=== PATIENT | female | born 1995 | race Caucasian/White ===

== ENCOUNTER → 2020-11-28 19:38 | Observation (INO) ==
[2020-11-28 19:05] LABS: Bacteria,Urine Few per hpf (None-Few); Bilirubin,Urine Negative (Negative); Blood,Urine Negative (Negative); Clarity,Urine Turbid (Clear); Color,Urine Yellow (Yellow); Glucose,Urine (UA) Normal (Normal); Ketones,Urine Negative (Negative); Leukocyte Esterase,Urine Small (Negative); Mucus,Urine Few per lpf (None-Few); Nitrite,Urine Negative (Negative); Protein,Urine 30 mg/dL (Neg-Trace); RBC,Urine 0-3 per hpf (0-3); Specific Gravity,Urine 1.028 (1.010-1.025); Squamous Epithelial Cell,Urine Few per hpf (None-Few); Urobilinogen,Urine Normal (Normal)
[~2020-11-28 19:38] MED LIST: Ringers Solution, Lactated 1,000 ML ONE
== END | disposition home or self-care (01) ==
LOC: 1NENULAB
PROVIDERS: ADMIT Obstetrics & Gynecology; ATTEND Obstetrics & Gynecology

== ENCOUNTER 2020-12-14 18:00 | Inpatient (IN) ==
[2020-12-14] MEDS ORDERED: Famotidine 20 MG/2 ML VIAL IVP ONE (18:57)
[2020-12-14] MEDS ORDERED: CeFAZolin 2,000 MG/50 ML BAG IVPB ONE (18:57)
[2020-12-14] MEDS ORDERED: Ringers Solution, Lactated 1,000 ML IVC ONE (18:57)
[2020-12-14] MEDS ORDERED: Metoclopramide 10 MG/2 ML VIAL IVP ONE (18:57)
[2020-12-14] MEDS ORDERED: Ringers Solution, Lactated 1,000 ML IVC SCH (19:00)
[2020-12-14 19:23] LABS: Basophils % 0.3 %; Eosinophils # 0.2 K/mcL (0.0-0.6); Hematocrit 35.2 % (35.3-44.9); Hemoglobin 10.2 g/dL (11.5-15.4); Immature Granulocytes % 0.4 % (0-4); Lymphocytes # 3.2 K/mcL (0.6-4.6); Lymphocytes % 20.3 %; Mean Corpuscular Hemoglobin 22.8 pg (28.0-33.3); Mean Corpuscular Volume 78.7 fL (83.0-100.0); Mean Platelet Volume 11.3 fL (9.4-12.4); Monocytes # 0.8 K/mcL (0.0-1.3); Monocytes % 5.3 %; Neutrophils # 11.5 K/mcL (1.6-8.9); Platelet Count 291 K/mcL (140-400); Red Blood Count 4.47 M/mcL (3.82-4.97); Segmented Neutrophils % 72.7 %; White Blood Count 15.8 K/mcL (4.3-11.1)
[2020-12-14] MEDS ORDERED: *HR* FentaNYL (PF) 250 MCG/5 ML VIAL ONE (19:38)
[2020-12-14] MEDS ORDERED: *HR* Morphine Sulfate/PF 10 MG/10 ML AMPUL ONE (19:38)
[2020-12-14] MEDS ORDERED: *HR* Phenylephrine 10 MG/ML VIAL ONE (19:38)
[2020-12-14] MEDS ORDERED: *HR* FentaNYL (PF) 100 MCG/2 ML VIAL ONE ×2 (19:39→21:52)
[2020-12-14 19:49] LABS: Amphetamine Screen,Urine Negative ng/mL (Cutoff=1000); Barbiturate Screen,Urine Negative ng/mL (Cutoff=200); Benzodiazepines Screen,Urine Negative ng/mL (Cutoff=200); Cannabinoid Screen,Urine Negative ng/mL (Cutoff = 50); Cocaine Screen,Urine Negative ng/mL (Cutoff= 300); Opiate Screen,Urine Negative ng/mL (Cutoff=300); Phencyclidine Screen,Urine Negative ng/mL (Cutoff=25)
[2020-12-14] MEDS ORDERED: Oxytocin 20 units/ LR 1000 mL 20 UNIT/1,000 ML BAG IVC ONE (19:52)
[2020-12-14 20:15] LABS: Adenovirus Not Detected (Not Detect); Bordetella Pertussis Not Detected (Not Detect); Chlamydophila pneumoniae Not Detected (Not Detect); Coronavirus 229E Not Detected (Not Detect); Coronavirus HKU1 Not Detected (Not Detect); Coronavirus NL63 Not Detected (Not Detect); Coronavirus OC43 Not Detected (Not Detect); Human Metapneumovirus Not Detected (Not Detect); Human Rhinovirus/Enterovirus Not Detected (Not Detect); Influenza A Subtype 2009 H1 Not Detected (Not Detect); Influenza B Not Detected (Not Detect); Mycoplasma pneumoniae Not Detected (Not Detect); Parainfluenza Virus 1 Not Detected (Not Detect); Parainfluenza Virus 2 Not Detected (Not Detect); Parainfluenza Virus 3 Not Detected (Not Detect); Parainfluenza Virus 4 Not Detected (Not Detect); Respiratory Syncytial Virus Not Detected (Not Detect); SARS-CoV-2 Not Detected (Not Detect)
[2020-12-14] MEDS ORDERED: Acetaminophen IV 1,000 MG/100 ML BAG IVPB ONE (20:44)
[2020-12-14] MEDS ORDERED: Ondansetron 4 MG/2 ML VIAL IVP PRN (20:50)
[2020-12-14] MEDS ORDERED: *HR* HYDROmorphone PF 0.5 MG/0.5 ML SYRINGE IVP PRN (20:50)
[2020-12-14] MEDS ORDERED: *HR* HYDROmorphone (PF) 1 MG/ML SYRINGE IVP PRN (21:51)
[2020-12-15] MEDS ORDERED: Ondansetron 4 MG/2 ML VIAL IVP PRN (01:08)
[2020-12-15] MEDS ORDERED: Sennosides 8.6 MG TABLET PO PRN (01:08)
[2020-12-15] MEDS ORDERED: Rho Immune Globulin 1,500 UNIT SYRINGE IM ONE (01:08)
[2020-12-15] MEDS ORDERED: Simethicone 80 MG TAB.CHEW PO PRN (01:08)
[2020-12-15] MEDS ORDERED: Ringers Solution, Lactated 1,000 ML IVC SCH (01:08)
[2020-12-15] MEDS ORDERED: *HR* OxyCODONE/APAP 5/325 TABLET PO PRN (01:08)
[2020-12-15] MEDS ORDERED: Metoclopramide 10 MG/2 ML VIAL IVP PRN (01:08)
[2020-12-15] MEDS: Oxytocin 20 units/ LR 1000 mL 20 UNIT/1,000 ML BAG IVC SCH ×2 (01:38→07:56)
[2020-12-15] MEDS: Ibuprofen 600 MG TABLET PO PRN ×4 (01:39→20:20)
[2020-12-15 06:11] LABS: Basophils % 0.2 %; Eosinophils % 0.2 %; Hematocrit 30.5 % (35.3-44.9); Immature Granulocytes % 0.3 % (0-4); Lymphocytes # 2.4 K/mcL (0.6-4.6); Lymphocytes % 18.3 %; Mean Corpuscular HGB Conc 29.5 g/dL (31.6-35.5); Mean Corpuscular Hemoglobin 23.5 pg (28.0-33.3); Mean Corpuscular Volume 79.6 fL (83.0-100.0); Mean Platelet Volume 11.2 fL (9.4-12.4); Monocytes # 0.8 K/mcL (0.0-1.3); Monocytes % 6.3 %; Neutrophils # 9.7 K/mcL (1.6-8.9); Platelet Count 227 K/mcL (140-400); Red Blood Count 3.83 M/mcL (3.82-4.97); Red Cell Distribution Width 16.1 % (11.5-14.5); Segmented Neutrophils % 74.7 %
[2020-12-15] MEDS: Prenatal Vit/FA 1 EACH TABLET PO SCH (07:35)
[2020-12-15] MEDS: Acetaminophen 325 MG TABLET PO PRN (18:12)
[2020-12-16] MEDS: Acetaminophen 325 MG TABLET PO PRN ×2 (00:22→11:09)
[2020-12-16] MEDS: Ibuprofen 600 MG TABLET PO PRN (08:25)
[2020-12-16] MEDS: Prenatal Vit/FA 1 EACH TABLET PO SCH (08:25)
[2020-12-16 09:59] VITALS: BP 116/80
== END 2020-12-16 11:43 | disposition home or self-care (01) | DRG 540 ==
LOC: 1NENULAB 18:00 → 1NENUOBS 12-15 00:48
PROVIDERS: ADMIT Student in an Organized Health Care Education/Training Program; ATTEND Student in an Organized Health Care Education/Training Program